=== PATIENT | female | born 1950 | race Caucasian/White ===

== ENCOUNTER 2021-08-17 11:02 | Emergency (ER) | payer MEDICARE, SELFPAY ==
[2021-08-17] VITALS (14 sets, daily range): BP systolic 103–1326; BP diastolic 55–77; PULSE 72–85; RESP 12–22; O2SAT 96–100
--- NOTE | ~2021-08-17 | XR_ITS ---
EXAMINATION: XR chest 2V DATE: 08/17/2021 12:54 INDICATION: Intermittent shortness of breath. Atrial fibrillation. TECHNIQUE: PA and lateral views of the chest were obtained. COMPARISON: None FINDINGS: Mild linear discoid atelectasis at the lingula. No other airspace opacities, pulmonary edema, pleural effusion or pneumothorax. The cardiomediastinal silhouette is normal. Mild thoracic spondylosis. IMPRESSION: 1. Mild discoid atelectasis at the lingula. Reviewed, dictated and finalized at location A.
--- NOTE | 2021-08-17 11:06 | ECG_ITS ---
Measurements Intervals [place] Rate: 86 P: MD: 0 QRS: -11 QRSD: 83 T: 39 QT: 356 QTc: 427 Interpretive Statements ATRIAL FIBRILLATION LOW QRS VOLTAGE IN PRECORDIAL LEADS [QRS DEFLECTION < 1.0 mV IN CHEST LEADS] NONSPECIFIC T-WAVE ABNORMAL ECG NO PREVIOUS ECG AVAILABLE FOR COMPARISON Electronically Signed On 08-17-2021 13:23:31 CDT by Negro Velez M.D.
--- NOTE | 2021-08-17 11:22 | ED.ARRPALP ---
HPI - Arrhythmia/Palpitations General Chief Complaint: Arrhythmia/Palpitations Stated Complaint: arrhythmia Time Seen by Provider: 08/17/21 11:09 Source: patient Mode of arrival: ambulatory Limitations: no limitations History of Present Illness HPI narrative: 70-year-old female with history of proximal atrial fibrillation presents today with complaints of palpitations since 6 PM last night with intermittent shortness of breath. Patient currently on aspirin, nebivolol, but has not seen a inside sales for years. Patient states her inside sales has moved and her primary has been managing her medications. Patient denies chest pain or recent illness. Related Data Home Medications Medication Instructions Recorded Confirmed aspirin 81 mg PO DAILY 08/17/21 Allergies Allergy/AdvReac Type Severity Reaction Status Date / Time No Known Allergies Allergy Mild Verified 08/17/21 11:20 Review of Systems Review of Systems: CONSTITUTIONAL: Denies fever, chills, or sweats. EYES: Denies visual changes, redness, or discharge. ENT: Denies rhinorrhea, congestion, sore throat, or otalgia. CARDIOVASCULAR: Palpitations. Denies chest pain or edema. RESPIRATORY: Denies cough or dyspnea. GASTROINTESTINAL: Denies abdominal pain, nausea, vomiting, or diarrhea. GENITOURINARY: Denies dysuria or hematuria. SKIN: Denies rash or itching. MUSCULOSKELETAL: Denies back pain, joint pain, or myalgia. NEUROLOGIC: Denies headache, numbness, dizziness, or weakness. PSYCHIATRIC: Denies anxiety or depression. [facility] Past Medical History Medical History (Updated 08/17/21 @ 14:23 by Alisa Fernandez APRN) Hypertension PAF (paroxysmal atrial fibrillation) Exam Narrative: GENERAL: Well-appearing, well-nourished, and in no acute distress. HEAD: Normocephalic, atraumatic. EYES: PERRLA and EOMI. ENT: Nares clear, no rhinorrhea or epistaxis. Mucous membranes moist. Oropharynx without tonsillar hypertrophy exudate or other lesions. Bilateral TMs pearly ngo nonbulging NECK: Supple. No adenopathy or masses. No carotid bruits or JVD CHEST: Clear to auscultation. No respiratory distress. No wheezes rales or rhonchi HEART: Irregular heart rate. A. fib on EKG. No murmur heard. Normal peripheral pulses. ABDOMEN: Soft, nontender, nondistended, normal active bowel sounds. EXTREMITIES: Normal range of motion. No edema. SKIN: Warm, dry, no rash. NEURO: No focal deficits. Alert and oriented x3. PSYCH: Normal mood and affect. Course Course Emergency Course: Dr. Velez consulted on patient. Patient currently stable. Patient with history of paroxysmal atrial fibrillation currently on medications but no anticoagulants. Will discharge patient on anticoagulant with plan follow-up with cardiology. Reevaluation(s) Reevaluation #1: Patient states last labs were about 2 weeks ago. GFR at that time she believes was 58. Patient was seen by her escrow secretary who ordered the labs. Patient currently without complaints. Aware of labs. Will await chest x-ray and consult cardiology. Date: 08/17/21 Time: 12:54 Vital Signs Vital signs: Vital Signs Pulse Rate 85 08/17/21 11:10 Respiratory Rate 13 08/17/21 11:10 Blood Pressure 1326/72 H 08/17/21 11:10 Pulse Oximetry 99 08/17/21 11:10 Pulse Rate 76 08/17/21 14:20 Respiratory Rate 18 08/17/21 14:20 Blood Pressure 124/77 08/17/21 14:20 Pulse Oximetry 100 08/17/21 14:02 MDM - Arrhythmia/Palpitations Differential Diagnosis Differential diagnosis: Likely palpitations, artial fibrillation, artial flutter and ventricular premature beats Lab Data Result diagrams: 08/17/21 11:26 08/17/21 11:26 Labs: Lab Results 08/17/21 08/17/21 08/17/21 Range/Units 11:26 11:26 11:26 WBC 6.4 (4.5-10.0) K/mm3 RBC 3.90 L (4.2-5.4) M/mm3 Hgb 12.3 (12.0-15.0) g/dL Hct 37.2 (37.0-47.0) % MCV 95.4 (80-100) fl MCH 31.5 (26-34) pg MCHC 33.1 (32-3
[2021-08-17 11:34] LABS: Basophils Percent Auto 0.6 % (0.2-1.2); Eosinophils Absolute Auto 0.1 K/mm3 (0-0.3); Eosinophils Percent Auto 0.9 % (0-4.4); Hematocrit 37.2 % (37.0-47.0); Hemoglobin 12.3 g/dL (12.0-15.0); Immature Granulocyte Percent A 1.6 % (0-0.5); Lymphocytes Absolute Auto 2.74 K/mm3 (0.9-3.2); Lymphocytes Percent Auto 42.7 % (18.3-44.2); Mean Corpuscular HGB Conc 33.1 g/dl (32-36); Mean Corpuscular Hemoglobin 31.5 pg (26-34); Mean Corpuscular Volume 95.4 fl (80-100); Mean Platelet Volume 8.9 fl (7.4-10.4); Monocytes Absolute Auto 0.5 K/mm3 (0.1-0.6); Monocytes Percent Auto 7.6 % (2.6-8.5); Neutrophils Percent Auto 46.6 % (45.5-73.1); Platelet Count Result 174 k/mm3 (150-375); Red Cell Distribution Width 13.8 % (11.5-14.5); White Blood Count 6.4 K/mm3 (4.5-10.0)
[2021-08-17 11:44] LABS: Alanine Aminotransferase 20 U/L (4-35); Albumin Level 3.8 g/dL (3.5-5.1); Alkaline Phosphatase 39 U/L (38-126); Anion Gap 7 mmol/L (8-16); Aspartate Amino Transferase 23 U/L (14-36); Bilirubin,Total 0.4 mg/dL (0.2-1.3); Blood Urea Nitrogen 23 mg/dL (7-17); Calcium 8.4 mg/dL (8.4-10.2); Carbon Dioxide 26 mmol/L (22-30); Chloride 107 mmol/L (98-107); Estimated Glomerular Filt Rate 55; Glucose 84 mg/dL (65-110); Magnesium 1.9 mg/dL (1.6-2.3); Potassium 3.6 mmol/L (3.4-5.0); Sodium 140 mmol/L (137-145)
[2021-08-17] MEDS: SODIUM CHLORIDE 0.9% IV 1,000 ML 999 ML IV CONT (12:42)
[2021-08-17 13:22] LABS: Prothrombin Time 12.9 Seconds (11.1-14.7)
[2021-08-17 13:23] LABS: Partial Thromboplastin Time 24.7 SECONDS (22.3-36.8)
[2021-08-17] MEDS: RIVAROXABAN 15 MG TABLET PO (14:19)
== END 2021-08-17 14:34 | disposition home or self-care (01) ==
PROVIDERS: Emergency Medicine; Emergency Provider Nurse Practitioner Family
DX: I48.0 Paroxysmal atrial fibrillation (principal); I10 Essential (primary) hypertension; Z79.82 Long term (current) use of aspirin; R94.31 Abnormal electrocardiogram [ECG] [EKG]
CPT/HCPCS: 36415; 71046; 80053; 83735; 84443; 85025; 85610; 85730; 93005; 96360; 99283; A9270; J7030

== ENCOUNTER 2023-07-02 00:10 | Day surgery (SDC) | payer MEDICARE, SELFPAY ==
[2023-06-08 11:29] VITALS: BMI 30.1
--- NOTE | 2023-06-30 10:19 | SUR.PREOP ---
Patient called regarding upcoming procedure. Reviewed preop instructions, appointment times, and procedure prep.
[2023-07-02 07:54] VITALS: BP 151/63; PULSE 54; RESP 18; TEMP 36.4; O2SAT 99
[2023-07-02] MEDS: LACTATED RINGERS 1,000 ML 150 ML IV CONT (08:05)
--- NOTE | 2023-07-02 08:38 | WPDANESEPPF ---
Anes - Initial Pre Proc Eval Procedure: Operation Date: 07/02/23 09:00 Proposed Procedures p Colonoscopy - Finesse Radford MD Date/Time: 07/02/23 08:38 Surgeon: Finesse Radford MD Pre Op Diagnosis: hx colon polyps Patient Data Age: 72 Gender: F Height: 1.6 m Weight: 76 kg Last Vital Signs Temp 97.6 F 07/02/23 07:54 Pulse 54 L 07/02/23 07:54 Resp 18 07/02/23 07:54 BP 151/63 H 07/02/23 07:54 Pulse Ox 99 07/02/23 07:54 O2 Del Method Room Air 07/02/23 07:54 Allergies Allergy/AdvReac Type Severity Reaction Status Date / Time No Known Allergies Allergy Mild Verified 07/02/23 07:53 Home Medications Medication Instructions Recorded Confirmed Type aspirin 81 mg capsule 81 mg PO DAILY 08/17/21 06/08/23 History doxazosin 8 mg tablet (Cardura) 8 mg PO DAILY 02/19/23 06/08/23 History rosuvastatin 5 mg tablet 5 mg PO DAILY 02/19/23 06/08/23 History sulfasalazine 500 mg tablet 0.5 g PO DAILY 02/19/23 06/08/23 History escitalopram oxalate 10 mg tablet 10 mg PO DAILY #30 tabs 06/14/23 Rx (Lexapro) losartan 100 mg tablet 100 mg PO DAILY #30 tabs 06/14/23 Rx nebivolol 20 mg tablet (Bystolic) 20 mg PO DAILY #30 tabs 06/14/23 Rx Patient hx anesthesia problems: none Family hx anesthesia problems: none Results Review: All pre-operative results and documents have been reviewed as part of the pre-operative evaluation. [facility] Past Medical History Medical History (Updated 04/15/23 @ 08:16 by LANNY Andrade) Hypertension Kidney disease PAF (paroxysmal atrial fibrillation) Family History Family History Mother Cancer Cerebrovascular accident Sibling Cancer Grandparent Cancer Heart problem Social History Social History Smoking status: Never smoker Alcohol intake: current Substance use: never Lack of Transportation: No Lack of Food: Never True Current Housing: I Have Housing Concerned About Future Housing: No Difficulty Paying Gas/Electric Bills: No Difficulty Paying for Meds: No Currently Unemployed: No Education: High School Diploma/GED Difficulty w/ Childcare or Family Care: No Occupation/Education: retired Gender identity (if verbalized by the patient): Female [employer] - [employer] Final PreProcedure Day of Procedure 07/02/23 08:38 Patient weight: normal Heart: bradycardia Lungs: clear to auscultation Airway: Mallampati scale class II Neurological: alert and oriented Last oral intake: >/= 8 hours ASA classification: III Emergent: no Anesthetic plan: proceed Anesthesia type and monitoring: general GIVS and standard monitoring Results Review: All pre-operative results and documents have been reviewed as part of the pre-operative evaluation. Informed Consent: The patient's anesthetic plan and its attendant risks and benefits were discussed with the patient/family/POA. Questions were solicited and answers provided to the satisfaction of the patient/family/POA.
--- NOTE | 2023-07-02 08:42 | PM.HPGS ---
History of Present Illness History of Present Illness Consent: Risks, benefits, and alternatives have been discussed and questions answered. Patient agrees to proceed with procedure. Chief complaint: colon screening Narrative: Johanna Dunbar is a 72 year old female here for screening colonoscopy, last one about 11 years ago Review of Systems Constitutional: Constitutional: Denies headache(s) and Denies weakness Eyes: Eyes: Denies blurry vision ENT: Reports Normal hearing present, Denies headache(s) and Denies neck pain Cardiovascular: Cardiovascular: Denies chest pain and Denies dyspnea Respiratory: Respiratory: Denies dyspnea Gastrointestinal: Gastrointestinal: Reports no additional gastrointestinal complaints Genitourinary: Genitourinary: Denies dysuria Musculoskeletal: Musculoskeletal: Denies neck pain Integumentary/Breasts: Skin/Breast: Denies dry skin Neurologic: Reports Normal hearing present, Denies headache(s) and Denies weakness Psychiatric: Psychiatric: Denies anxiety Endocrine: Endocrine: Denies change in body appearance Hematologic/Lymphatic: Hematologic/Lymphatic: Denies easy bleeding Allergic/Immunologic: Allergic/Immunologic: Denies urticaria PMFSH Past Medical History Medical History (Updated 07/02/23 @ 08:43 by Finesse Radford MD) Colon cancer screening Hypertension Kidney disease PAF (paroxysmal atrial fibrillation) Family History Family History Mother Cancer Cerebrovascular accident Sibling Cancer Grandparent Cancer Heart problem Social History Social History Smoking status: Never smoker Alcohol intake: current Substance use: never Lack of Transportation: No Lack of Food: Never True Current Housing: I Have Housing Concerned About Future Housing: No Difficulty Paying Gas/Electric Bills: No Difficulty Paying for Meds: No Currently Unemployed: No Education: High School Diploma/GED Difficulty w/ Childcare or Family Care: No Occupation/Education: retired Gender identity (if verbalized by the patient): Female Meds Home Medications and Allergies Home Medications Medication Instructions Recorded Confirmed Type aspirin 81 mg capsule 81 mg PO DAILY 08/17/21 06/08/23 History doxazosin 8 mg tablet (Cardura) 8 mg PO DAILY 02/19/23 06/08/23 History rosuvastatin 5 mg tablet 5 mg PO DAILY 02/19/23 06/08/23 History sulfasalazine 500 mg tablet 0.5 g PO DAILY 02/19/23 06/08/23 History escitalopram oxalate 10 mg tablet 10 mg PO DAILY #30 tabs 06/14/23 Rx (Lexapro) losartan 100 mg tablet 100 mg PO DAILY #30 tabs 06/14/23 Rx nebivolol 20 mg tablet (Bystolic) 20 mg PO DAILY #30 tabs 06/14/23 Rx Allergies Allergy/AdvReac Type Severity Reaction Status Date / Time No Known Allergies Allergy Mild Verified 07/02/23 07:53 Vital Signs Vital Signs - 24 hr 07/02/23 07:54 Temperature 97.6 F Pulse Rate 54 L Respiratory Rate 18 Blood Pressure 151/63 H Pulse Oximetry 99 Oxygen Delivery Room Air Exam Const: General: comfortable and no acute distress HENMT: Face/Nose/Sinus: Normal nares present Eyes: General: appearance normal, both eyes and all related structures Neck: Neck: no JVD Resp: Auscultation: clear to auscultation bilaterally Cardio: Rate: regular rate Rhythm: regular rhythm GI: Inspection: non-distended GI Palp: Yes Soft to palpation Skin: General skin exam: normal color Neuro: General: gait normal Speech: normal speech Extrem: General: normal to inspection Psych: Mental Status: mental status grossly normal Assessment and Plan Assessment and plan (1) Colon cancer screening: Code(s): Z12.11 - Encounter for screening for malignant neoplasm of colon Status: Acute Assessment and Plan: colonoscopy
[2023-07-02 09:09] VITALS: BP 149/79; PULSE 56; RESP 24; O2SAT 100
[2023-07-02 09:19] VITALS: BP 139/66; PULSE 59; RESP 25; O2SAT 100
[2023-07-02 09:29] VITALS: BP 159/55; PULSE 56; RESP 23; O2SAT 100
== END 2023-07-02 09:35 | disposition home or self-care (01) ==
PROVIDERS: PCP Clinical Nurse Specialist; Referring Provider Clinical Nurse Specialist; Visit Provider Internal Medicine Gastroenterology
PROC: 0DJD8ZZ Inspection of Lower Intestinal Tract, Via Natural or Artificial Opening Endoscopic (ICD-10-PCS; CPT 45378; principal; 2023-07-02 09:00)
DX: Z12.11 Encounter for screening for malignant neoplasm of colon (principal); D12.2 Benign neoplasm of ascending colon; K63.5 Polyp of colon; K64.8 Other hemorrhoids; I48.0 Paroxysmal atrial fibrillation; I10 Essential (primary) hypertension; N28.9 Disorder of kidney and ureter, unspecified; Z79.82 Long term (current) use of aspirin
CPT/HCPCS: 45385; 88305; J2001; J2704; J7120

== ENCOUNTER → 2023-07-27 10:56 | Outpatient (CLI) | payer MEDICARE, SELFPAY ==
--- NOTE | ~2023-07-27 | XR_ITS ---
EXAMINATION: XR hip LT 2V w AP pelvis DATE: 07/27/2023 11:13 INDICATION: Left hip pain. TECHNIQUE: An anteroposterior view of the pelvis and 2 views of left hip were obtained. COMPARISON: None. FINDINGS: Bone alignment is normal. No fracture. There is mild osteoarthritis of the hips characteriz ed by tiny osteophytes. Osteitis pubis is noted. IMPRESSION: 1. Mild osteoarthritis of the hips. Reviewed, dictated and finalized at location E. EM TRAINER
== END ==
PROVIDERS: PCP Internal Medicine; Visit Provider Internal Medicine
DX: M16.12 Unilateral primary osteoarthritis, left hip (principal)
CPT/HCPCS: 73502

== ENCOUNTER 2023-08-11 13:04 | Outpatient (CLI) | payer MEDICARE, SELFPAY ==
--- NOTE | 2023-08-11 13:15 | ECHO_ITS ---
Patient Info Name: Johanna Dunbar Age: 72 years : 1950 Gender: Female Ht: 63 in Wt: 169 lbs BSA: 1.87 m2 HR: 50 bpm BP: 167 / 78 mmHg Heart Rhythm: Sinus Rhythm Technical Quality: Good Exam Date: 08/11/2023 1:27 PM Exam Location: Echo Lab Patient Status: Outpatient Admit Date: 08/11/2023 Staff Ordering Physician: Milton Sepulveda DO Gore Cutter: Elva Sarmiento RDCS Attending Provider: Milton Sepulveda DO Referring Physician: Coco TOSCANO; Exam Type: CA echo doppler color flow Study Info Indications - paroxysmal atrial fibrilation Complete two-dimensional, color flow and Doppler transthoracic echocardiogram is performed. Summary 1. Complete two-dimensional, color flow and Doppler transthoracic echocardiogram is performed. 2. Left ventricular chamber dimension is mildly enlarged. 3. Left ventricular systolic function is normal, estimated at 65-70%. 4. There is mild concentric increased left ventricular wall thickness. 5. The left ventricular diastolic function is abnormal. 6. E/e' 16 is elevated. 7. Left atrial chamber dimension is mildly enlarged. 8. There is mild aortic valve sclerosis. 9. There is mild to moderate aortic valve regurgitation. 10. There is mild mitral valve regurgitation. 11. No pulmonary hypertension, estimated pulmonary arterial systolic pressure is 19 mmHg. 12. There is trivial pericardial effusion. Left Ventricle E/e' 16 is elevated. Left ventricular chamber dimension is mildly enlarged. Left ventricular systolic function is normal, estimated at 65-70%. There is mild concentric increased left ventricular wall thickness. The left ventricular diastolic function is abnormal. Right Ventricle Right ventricular systolic function is normal and with normal TAPSE 2.4 cm. Right ventricular chamber dimension is normal. Left Atria Left atrial chamber dimension is mildly enlarged. Right Atria Right atrial chamber dimension is normal. Aortic Valve The aortic valve is not well visualized. Cannot determine number of aortic valve leaflets. There is mild aortic valve sclerosis. There is no aortic valve stenosis. There is mild to moderate aortic valve regurgitation. Pulmonic Valve There is no pulmonic regurgitation. Mitral Valve There is no mitral valve stenosis. There is mild mitral valve regurgitation. Tricuspid Valve There is no tricuspid valve regurgitation. No pulmonary hypertension, estimated pulmonary arterial systolic pressure is 19 mmHg. Pericardium/Pleural There is trivial pericardial effusion. Inferior Vena Cava Normal inferior vena cava with >50% collapse upon inspiration consistent with normal right atrial pressure, 5 mmHg. Aorta The aortic root size at the sinus of Valsalva is normal. Left Ventricular Outflow Tract Name Value Normal LVOT 2D LVOT Diameter 2.1 cm LVOT Doppler LVOT Peak Gradient 3 mmHg LVOT Mean Gradient 2 mmHg LVOT VTI 30 cm LVOT VTI/AV VTI Ratio 0.5 LVOT Stroke Volume 106 ml LVOT CO 5.6 l/min LVOT CI
== END 2023-08-11 13:05 | disposition home or self-care (01) ==
LOC: ANHCARD 13:06
PROVIDERS: PCP Internal Medicine; Visit Provider Internal Medicine
DX: I48.0 Paroxysmal atrial fibrillation (principal); I35.8 Other nonrheumatic aortic valve disorders; R93.1 Abnormal findings on diagnostic imaging of heart and coronary circulation; I35.1 Nonrheumatic aortic (valve) insufficiency; I34.0 Nonrheumatic mitral (valve) insufficiency; I31.39 Other pericardial effusion (noninflammatory)
CPT/HCPCS: 93306

== ENCOUNTER 2023-11-20 08:37 | Outpatient (CLI) | payer MEDICARE, SELFPAY ==
--- NOTE | ~2023-11-20 | XR_ITS ---
EXAMINATION: XR knee RT 3V DATE: 11/20/2023 08:51 INDICATION: Right knee pain TECHNIQUE: Standing AP, lateral and sunrise views of the right knee were obtained COMPARISON: None. FINDINGS: Alignment is normal. No fracture. Mild joint space narrowing and small marginal osteophytes at the me dial and patellofemoral compartments of the right knee. No joint effusion/layering lipohemarthrosis. Soft tissues are unremarkable. IMPRESSION: 1. Mild osteoarthritis at the medial and patellofemoral compartments of the right knee. Reviewed, dictated and finalized at location B. IMPRESSION: 1. Mild osteoarthritis at the medial and patellofemoral compartments of the rig ht knee.
== END 2023-11-20 08:38 ==
LOC: GOSHIMG 08:39
PROVIDERS: PCP Internal Medicine; Visit Provider Clinical Nurse Specialist
DX: M17.11 Unilateral primary osteoarthritis, right knee (principal); M25.561 Pain in right knee
CPT/HCPCS: 73562

== ENCOUNTER 2023-11-25 13:23 | Outpatient (CLI) | payer MEDICARE, SELFPAY ==
--- NOTE | ~2023-11-25 | MR_ITS ---
EXAMINATION: MR knee RT wo con DATE: 11/25/2023 14:02 INDICATION: Right knee pain. TECHNIQUE: Magnetic resonance imaging (MRI) of the right knee was performed without intravenous contr ast. Sequences included axial PD-weighted FS FSE, coronal PD-weighted FSE and PD-weighted FS FSE, sag ittal PD-weighted FSE, and sagittal T2-weighted FS FSE. COMPARISON: Right knee radiograph 11/20/2023 FINDINGS: Medial compartment: There is a complex tear involving posterior horn of medial meniscus. Tibial condyle demonstrates shal low partial-thickness cartilage loss. There is partial-thickness cartilage loss of femoral condyle, d eep at the central articular surface. Osteophytes are noted. Lateral compartment: Lateral meniscus is normal. There is cartilage surface irregularity of tibial condyle and femoral con dyle. Osteophytes are noted. Patellofemoral compartment: There is full-thickness cartilage loss of patellar median ridge and adjacent aspect of medial and lat eral facets with mild subchondral edema-like marrow signal intensity. There is shallow partial-thickn ess cartilage loss of the trochlea. Osteophytes are noted. Ligaments and tendons: The anterior and posterior cruciate ligaments are normal. There are changes of prior sprains of media l collateral ligament and fibular collateral ligament characterized by increased signal intensity. Th ere is mild patellar tendinopathy. Fluid: There is a moderate-sized knee joint effusion. There is a moderate-sized Bland's cyst. There is mild prepatellar and superficial infrapatellar bursitis. IMPRESSION: 1. Severe chondrosis of patellofemoral compartment, moderate chondrosis of medial compartment, and mi ld chondrosis of lateral compartment. 2. Tear of medial meniscus. 3. Moderate-sized knee joint effusion. 4. Moderate-sized Bland's cyst. Reviewed, dictated and finalized at location A. IMPRESSION: 1. Severe chondrosis of patellofemoral compartment, moderate chondrosis of medi al compartment, and mild chondrosis of lateral compartment. 2. Tear of medial meniscus. 3. Moderate-sized knee joint effusion. 4. Moderate-sized Bland's cyst.
== END 2023-11-25 13:24 ==
LOC: GOSHIMG 13:25
PROVIDERS: PCP Internal Medicine; Visit Provider Clinical Nurse Specialist
DX: M25.561 Pain in right knee (principal); M22.2X1 Patellofemoral disorders, right knee; S83.241A Other tear of medial meniscus, current injury, right knee, initial encounter; M25.461 Effusion, right knee; M71.21 Synovial cyst of popliteal space [Baker], right knee
CPT/HCPCS: 73721

== ENCOUNTER 2024-06-01 10:55 | Emergency (ER) | payer MEDICARE, SELFPAY ==
--- NOTE | 2024-06-01 11:10 | ED.SKABFB ---
HPI - Skin/Abscess/Foreign Bdy General Chief complaint: Animal Bite Stated complaint: CAT BITE R INDEX FINGER Time Seen by Provider: 06/01/24 11:11 Source: patient and RN notes reviewed Mode of arrival: ambulatory Limitations: dementia History of Present Illness HPI narrative: 73-year-old female presents with concern for cap bite to the 2nd digit of the right hand. Reports she got bit yesterday. Reports she has had redness, swelling, pain to the digit. She denies drainage. She denies fever MD complaint: other (Redness) Related Data Home Medications ?Medication ?Instructions ?Recorded ?Confirmed ?Last Taken ?Type aspirin 81 mg capsule 162 mg PO DAILY 07/27/23 03/21/24 Unknown History sulfasalazine 500 mg tablet 0.5 g PO DAILY 09/14/23 03/21/24 Unknown History Allergies Allergy/AdvReac Type Severity Reaction Status Date / Time No Known Allergies Allergy Mild Verified 06/01/24 11:15 Review of Systems Review of Systems: CONSTITUTIONAL: Denies malaise, chills, sweats, or fever. CARDIOVASCULAR: Denies chest pain, palpitations, or edema. RESPIRATORY: Denies cough or dyspnea. GASTROINTESTINAL: Denies abdominal pain, nausea, vomiting SKIN: Reports redness, swelling, pain to the distal 2nd digit of the right hand. Denies purulent drainage, vesicles, bullae, numbness, pain beyond proportion MUSCULOSKELETAL: Denies joint pain or myalgia. NEUROLOGIC: Denies headache. All systems reviewed & are unremarkable except as noted in HPI and below PMFSH Past Medical History Medical History Aortic valve regurgitation Cataract Colon cancer screening (~03/14/24) Hypertension Kidney disease PAF (paroxysmal atrial fibrillation) Surgical History Surgical History History of cataract surgery Family History Family History Mother Cancer Cerebrovascular accident Sibling Cancer Grandparent Cancer Heart problem Social History Social History Smoking status: Never smoker Second hand tobacco smoke exposure: Yes Alcohol intake: current Substance use: never Substance use type: does not use Do You Feel Safe in your Home?: Yes Lack of Transportation: No Lack of Food: Never True Current Housing: I Have Housing Concerned About Future Housing: Decline to Answer Difficulty Paying Gas/Electric Bills: Decline to Answer Difficulty Paying for Meds: Decline to Answer Currently Unemployed: Decline to Answer Education: Decline to Answer Difficulty w/ Childcare or Family Care: Decline to Answer Living arrangements: with family 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 There is no relevant family history pertinent to the presenting complaint Exam Narrative: GENERAL: Well-appearing, well-nourished, and in no acute distress. HEAD: Normocephalic, atraumatic. EYES: PERRLA, conjunctivae clear ENT: Mucous membranes moist. NECK: Supple. No lymphadenopathy CHEST: Clear to auscultation. No respiratory distress. HEART: Regular rate and rhythm. SKIN: Warm, dry. Puncture wound surrounded by Erythema, induration, tenderness, warmth with sharp margins noted to the 2nd digit of the distal right hand. No vesicles, bullae, necrosis, ecchymosis, crepitus noted. NEURO: Alert and oriented x3. PSYCH: Normal mood and affect Course Course Emergency Course: Patient is aware of diagnosis, understands and agrees to treatment plan. Anticipatory guidance given. Patient agrees to follow-up as directed and is aware of reasons to seek care at the emergency department. Portions of this record may have been created with voice recognition software Level of Care: Express Care Visit Vital Signs Vital signs: Reviewed. MDM - Skin/Abscess/Foreign Bdy MDM Narrative Medical decision making narrative: I evaluated this in the express care. History is obtained from patient who is an independent historian and physical exam was performed.? Available medical records were reviewed. ? Exam findings and relevant testing show no acute concerns or changes; patient is non-toxic appearing and is in no distress. No risk factors or findings concerning for epidural abscess, diskitis, vertebral osteomyelitis, cord compression, cauda equina, vertebral fracture or bone malignancy, AAA, or pyelonephritis. Patient instructed to consider further imaging and workup through their primary care physician as an outpatient if symptoms persist. Does not appear at this time to be erythema multiforme, bullous, SJS, TEN; no evidence at this time to suggest RMSF, NSTI, endocarditis or Lyme disease; patient looks well, nontoxic and is tolerating oral intake; no neurologic signs or symptoms; no headache, photophobia or neck pain; afebrile.? Patient does not have history of of penetrating trauma, laceration, blunt trauma, recent surgery, immunosuppression, malignancy, obesity, alcoholism, corticosteroid use.? Discussed the importance of follow-up, patient agrees; question, cellulitis versus necrotizing soft tissue infection versus abscess.?? Patient is appropriate for outpatient treatment and follow-up. Critical Care Time Critical Care Time Critical Care Time: No Discharge Plan Discharge Clinical Impression: Infected cat bite of finger Patient Disposition: Home, Self-Care Condition: Stable Instructions: Antibiotic Form, Animal Bite (ED) Additional Instructions: Please follow up with your Primary Care Doctor within 48-72 hours - call for an appointment. Rest and elevate affected area; apply moist heat/soaks 3-4 times daily for 10-15 minutes. Take Motrin 600mg every 8 hours with food for pain. Please take Antibiotics as directed. If you experience any worsening redness, swelling, streaking (red lines), fever or chills please go to the ER Patient Language: Brazilian Prescriptions: New amoxicillin-pot clavulanate 875-125 mg tablet 1 tablet PO Q12H 10 Days Qty: 20 0RF No Action rosuvastatin 5 mg tablet 5 mg PO .COMPLEX Qty: 30 6RF Rx Instructions: 5 mg orally every other day. sulfasalazine 500 mg tablet 0.5 g PO DAILY Rx Instructions: give with food (meal/snack) twice daily aspirin 81 mg capsule 162 mg PO DAILY escitalopram oxalate [Lexapro] 10 mg tablet 10 mg PO DAILY Qty: 30 5RF losartan 100 mg tablet 100 mg PO DAILY Qty: 30 5RF nebivolol [Bystolic] 20 mg tablet 20 mg PO DAILY Qty: 30 5RF doxazosin [Cardura] 8 mg tablet 8 mg PO DAILY Qty: 30 5RF Follow-up/Referrals: Aaliyah Draper, [employer] [Primary Care Provider] - Time of Disposition: 11:21
[2024-06-01 11:15] VITALS: BP 128/66; PULSE 63; RESP 16; TEMP 36.6; O2SAT 100
--- NOTE | 2024-06-01 11:21 | PC.NURSE ---
ANIMAL BITE FORM COMPLETED AND FAXED TO [facility] PER REGISTRATION
== END 2024-06-01 11:25 | disposition home or self-care (01) ==
PROVIDERS: Emergency Provider Nurse Practitioner; PCP Clinical Nurse Specialist
DX: S61.251A Open bite of left index finger without damage to nail, initial encounter (principal); L08.9 Local infection of the skin and subcutaneous tissue, unspecified; I10 Essential (primary) hypertension; I48.0 Paroxysmal atrial fibrillation; W55.01XA Bitten by cat, initial encounter
CPT/HCPCS: 99213; G0463

== ENCOUNTER 2024-09-27 11:34 | Emergency (ER) | payer MEDICARE, SELFPAY ==
[2024-09-27 11:43] VITALS: BP 137/66; PULSE 69; RESP 16; TEMP 36.4; O2SAT 97
--- NOTE | 2024-09-27 13:11 | ED.URI ---
HPI - URI/Sore Throat General Chief Complaint: Upper Respiratory Infection Stated Complaint: Head Congestion/Cough Time Seen by Provider: 09/27/24 13:00 Source: patient, RN notes reviewed and old records reviewed Mode of arrival: ambulatory Limitations: no limitations History of Present Illness HPI Narrative: 73 year old female who presents to express care with complaints of cough, nasal congestion with drainage some headache and ear pain since the 13 of September. Patient reports that she has been taking daytime and night time cold medication, sparingly due to hypertension. Patient reports that her cough is better but ears feel full and has decreased hearing and sinuses feel clogged.. MD elicited complaint: cough, rhinorrhea, nasal congestion and other (headache and ear pain) Pertinent past history: sinusitis Onset (ago): week(s) (since September 13) Consistency: constant Able to tolerate fluids by mouth: Yes Treatments prior to arrival: other (daytime and night time cold medication ) Related Data Home Medications ?Medication ?Instructions ?Recorded ?Confirmed ?Last Taken ?Type sulfasalazine 500 mg tablet 0.5 g PO DAILY 09/14/23 08/15/24 Unknown History aspirin 81 mg capsule 81 mg PO DAILY 08/15/24 08/15/24 Unknown History Allergies Allergy/AdvReac Type Severity Reaction Status Date / Time No Known Allergies Allergy Mild Verified 09/27/24 12:11 Review of Systems Review of Systems: CONSTITUTIONAL: Denies malaise, chills, sweats, or fever. EYES: Denies visual changes, redness, or discharge. ENT: Reports rhinorrhea, congestion, sinus pain, otalgia and no present sore throat. CARDIOVASCULAR: Denies chest pain, palpitations, or edema. RESPIRATORY: Reports cough.? Denies dyspnea. GASTROINTESTINAL: Denies abdominal pain, nausea, vomiting, diarrhea SKIN: Denies rash or itching. MUSCULOSKELETAL: Denies myalgia. NEUROLOGIC:Reports frontal headache. All systems reviewed & are unremarkable except as noted in HPI and below PMFSH Past Medical History Medical History RA (rheumatoid arthritis) Cataract Aortic valve regurgitation Colon cancer screening (~03/14/24) Kidney disease Hypertension PAF (paroxysmal atrial fibrillation) Surgical History Surgical History History of cataract surgery Family History Family History Mother Cancer Cerebrovascular accident Sibling Cancer Grandparent Cancer Heart problem Social History Social History Smoking status: Never smoker Second hand tobacco smoke exposure: Yes Alcohol intake: current Substance use: never Substance use type: does not use Do You Feel Safe in your Home?: Yes Lack of Transportation: No Lack of Food: Never True Current Housing: I Have Housing Concerned About Future Housing: Decline to Answer Difficulty Paying Gas/Electric Bills: Decline to Answer Difficulty Paying for Meds: Decline to Answer Currently Unemployed: Decline to Answer Education: Decline to Answer Difficulty w/ Childcare or Family Care: Decline to Answer Living arrangements: with family 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 There is no relevant family history pertinent to the presenting complaint Exam Narrative: GENERAL: Well-appearing, well-nourished, and in no acute distress. HEAD: Normocephalic EYES: PERRLA, conjunctivae clear ENT: Nares clear, turbinates edematous and erythematous, clear discharge, sinus pressure and frontal headache. Mucous membranes moist. TM pearly ngo with dull light reflex bilaterally; no tragal tenderness. Oropharynx erythematous without lesions. Tonsils not enlarged and without exudate, no drooling, no hoarseness, no trismus, uvula midline. NECK: Supple. No lymphadenopathy CHEST: Clear to auscultation, breath sounds equal. No wheezing, rhonchi, rales, or stridor. No respiratory distress, speaks in full sentences.cough intermittent, SAO2 97% on room air HEART: Regular rate and rhythm. No murmur heard. SKIN: Warm, dry, no rash. NEURO: Alert and oriented x3. PSYCH: Normal mood and affect Course Course Emergency Course: Patient is aware of diagnosis, understands and agrees to treatment plan.? Anticipatory guidance given.? Patient agrees to follow-up as directed and is aware of reasons to seek care at the emergency department. Portions of this record may have been created with voice recognition software Level of Care: Express Care Visit Vital Signs Vital signs: Vital Signs Temperature 36.4 C 09/27/24 11:43 Pulse Rate 69 09/27/24 11:43 Respiratory Rate 16 09/27/24 11:43 Blood Pressure 137/66 09/27/24 11:43 Pulse Oximetry 97 09/27/24 11:43 Temperature 36.4 C 09/27/24 11:43 Pulse Rate 69 09/27/24 11:43 Respiratory Rate 16 09/27/24 11:43 Blood Pressure 137/66 09/27/24 11:43 Pulse Oximetry 97 09/27/24 11:43 Reviewed MDM - URI/Sore Throat MDM Narrative Medical decision making narrative: Differential diagnosis considered: Reyes virus, strep pharyngitis, allergic rhinitis, upper respiratory tract infection, sinusitis, rhinosinusitis, nasopharyngitis. viral pharyngitis, otitis media, otitis externa, pneumonia, bronchitis, viral cough syndrome, viral syndrome, and influenza.? Exam findings show no acute concerns or changes; patient is non-toxic appearing and is in no distress.? Patient is appropriate for outpatient treatment and follow-up. Differential Diagnosis Differential diagnosis: Likely upper respiratory infection, otitis media, sinusitis and viral infection Medical Records Attestation: I reviewed the patient's medical records. Lab Data Attestation: I reviewed the patient's lab results. Critical Care Time Critical Care Time Critical Care Time: No Discharge Plan Discharge Clinical Impression: Sinusitis Qualifiers: Sinusitis location: pansinusitis Chronicity: acute Recurrence: not specified as recurrent Qualified Code(s): J01.40 - Acute pansinusitis, unspecified Patient Disposition: Home Condition: Stable Instructions: Antibiotic Form, Sinusitis (ED) Additional Instructions: Increase fluids especially juices and water [id number]-[id number] cough and cold medicine of your choice for your symptoms Tylenol or ibuprofen for any fever pain Zyrtec Claritin or Ros daily heat to the face 20-30 minutes 4-6 times a day for pain Salt water gargles, throat lozenges or throat sprays as desired Antibiotic as directed--finished the medication If your symptoms persist, change or worsen significantly before you can contact your personal physician then please, without delay, go to the emergency department for further evaluation. Follow-up with PCP in 7-10 days or sooner if needed Follow up with PCP soon in regards to your blood pressure which is elevated above threshold for referral. Blood pressure above 120/80 may indicate pre-hypertension. 137/66 Patient Language: Arabic Prescriptions: New amoxicillin-pot clavulanate 875-125 mg tablet 1 tablet PO Q12H Qty: 20 0RF No Action rosuvastatin 5 mg tablet 5 mg PO .COMPLEX Qty: 30 6RF Rx Instructions: 5 mg orally every other day. sulfasalazine 500 mg tablet 0.5 g PO DAILY Rx Instructions: give with food (meal/snack) twice daily aspirin 81 mg capsule 81 mg PO DAILY doxazosin [Cardura] 8 mg tablet 8 mg PO DAILY Qty: 30 5RF escitalopram oxalate [Lexapro] 10 mg tablet 10 mg PO DAILY Qty: 30 5RF losartan 100 mg tablet 100 mg PO DAILY Qty: 30 5RF nebivolol [Bystolic] 20 mg tablet 20 mg PO DAILY Qty: 30 5RF Follow-up/Referrals: PHYSICIAN,AGILE SCRUM COACH [Primary Care Provider] - Time of Disposition: 13:15 Quality [place] Coma Scale Eyes: Open Verbal: Oriented and Alert Motor: Follows Commands [place] Coma Total Score: 15
== END 2024-09-27 13:17 | disposition home or self-care (01) ==
PROVIDERS: Emergency Provider Registered Nurse
DX: J01.40 Acute pansinusitis, unspecified (principal); I10 Essential (primary) hypertension; I48.0 Paroxysmal atrial fibrillation; I35.1 Nonrheumatic aortic (valve) insufficiency; M06.9 Rheumatoid arthritis, unspecified; Z79.82 Long term (current) use of aspirin
CPT/HCPCS: 99213; G0463

== ENCOUNTER 2025-03-29 14:50 | Outpatient (CLI) | payer MEDICARE, SELFPAY ==
--- NOTE | 2025-03-29 14:59 | ECHO_ITS ---
Patient Info Name: Johanna Dunbar Age: 74 years : 1950 Gender: Female Ht: 63 in Wt: 163 lbs BSA: 1.84 m2 HR: 59 bpm BP: 151 / 87 mmHg Heart Rhythm: Sinus Rhythm Technical Quality: Fair Exam Date: 03/29/2025 3:01 PM Patient Status: O Admit Date: 03/29/2025 Exam Type: CA echo doppler color flow Complete two-dimensional, color flow and Doppler transthoracic echocardiogram is performed. Sql Server Dba: Latesha Lara Attending Provider: Milton Sepulveda DO Summary 1. Complete two-dimensional, color flow and Doppler transthoracic echocardiogram is performed. 2. Left ventricular chamber dimension is normal. 3. Left ventricular systolic function is normal, estimated at 65-70. 4. The left ventricular diastolic function is grade I diastolic dysfunction. 5. E/e' 15 is elevated. 6. Left atrial chamber dimension is mildly enlarged. 7. The aortic valve is bicuspid. 8. There is moderate aortic valve sclerosis. 9. There is mild aortic valve stenosis with a peak velocity of 285 cm/s, mean gradient of 15 mmHg, and aortic valve area of 1.5 cm2. 10. There is mild aortic valve regurgitation. 11. No pulmonary hypertension, estimated pulmonary arterial systolic pressure is 32 mmHg. Left Ventricle E/e' 15 is elevated. Left ventricular chamber dimension is normal. Left ventricular systolic function is normal, estimated at 65-70. The left ventricular diastolic function is grade I diastolic dysfunction. Right Ventricle Right ventricular chamber dimension is normal. Right ventricular systolic function is normal. Left Atria Left atrial chamber dimension is mildly enlarged. Right Atria Right atrial chamber dimension is normal. Aortic Valve The aortic valve is bicuspid. There is moderate aortic valve sclerosis. There is mild aortic valve stenosis with a peak velocity of 285 cm/s, mean gradient of 15 mmHg, and aortic valve area of 1.5 cm2. There is mild aortic valve regurgitation. Pulmonic Valve There is no pulmonic regurgitation. Mitral Valve There is no mitral valve stenosis. There is no mitral valve regurgitation. Tricuspid Valve There is no tricuspid valve regurgitation. No pulmonary hypertension, estimated pulmonary arterial systolic pressure is 32 mmHg. Pericardium/Pleural There is no pericardial effusion. Inferior Vena Cava Normal inferior vena cava with >50% collapse upon inspiration consistent with normal right atrial pressure, 5 mmHg. Aorta The aortic root size at the sinus of Valsalva is normal. Left Ventricular Outflow Tract Name Value Normal LVOT 2D LVOT Diameter 2.0 cm LVOT Doppler LVOT Peak Velocity 136 cm/s LVOT Peak Gradient 7 mmHg LVOT Mean Gradient 3 mmHg LVOT VTI 30 cm LVOT VTI/AV VTI Ratio 0.5 LVOT Stroke Volume 95 ml LVOT CO 5.1 l/min LVOT CI 2.8 l/min/m2 Pulmonic Valve Name Value Normal RVOT Doppler RVOT Peak Velocity 88 cm/s RVOT Peak Gradient 3 mmHg PV Doppler PV Peak Velocity 98 cm/s PV Peak Gradient 4 mmHg Mitral Valve Name Value Normal MV Diastolic Function MV E Peak Velocity 57 cm/s MV A Peak Velocity 74 cm/s MV E/A 0.8 MV Decel Time (PW) 245 ms MV Annular TDI MV E/e' (Septal) 14.8 MV E/e' (Lateral) 16.1 MV E/e' (Average) 15.4 Tricuspid Valve Name Value Normal TV Regurgitation Doppler TR Peak Velocity 260 cm/s TR Peak Gradient 20 mmHg Estimated PAP/RSVP RA Pressure 5 mmHg <=5 PA Systolic Pressure 32 mmHg <36 RV Systolic Pressure 32 mmHg <36 TV Annular TDI TV Lateral Janki s' Velocity 13.3 cm/s >=9.5 Aorta Name Value Normal Ascending Aorta Ao Root Diameter (MM) 3.3 cm Ao Root Diam Index (MM) 1.8 cm/m2 Aortic Valve Name Value Normal AV Doppler AV Peak Velocity 285 cm/s AV Peak Gradient 32 mmHg AV Mean Gradient 15 mmHg AV VTI 62 cm AV Area (Cont Eq VTI) 1.5 cm2 >=3.0 AV Area (Cont Eq Randy) 1.5 cm2 AV DI (Randy) 0.48 AV Regurgitation 2D LVOT Area 3.2 cm2 Ventricles Name Value Normal LV Dimensions 2D/MM IVS Diastolic Thickness (2D) 1.0 cm 0.6-1.0 LVID Diastole (2D) 5.6 cm 3.8-5.2 LVIW Diastolic Thickness (2D) 1.0 cm 0.6-0.9 LVID Systole (2D) 3.1 cm 2.2-3.5 LVOT Diameter 2.0 cm LV Mass (2D Cubed) 225.27 g 67.00-162.00 LV Mass Index (2D Cubed) 123 g/m2 43-95 Relative Wall Thickness (2D) 0.35 <=0.42 LV Fractional Shortening/Ejection Fraction 2D/MM LV Fractional Shortening (2D) 44 % 27-45 LV EF (2D Teichholz) 75 % LV Diastolic Volume (4C MOD) 84 ml LV EF (4C MOD) 61 % LV Diastolic Volume (2C MOD) 80 ml LV EF (2C MOD) 71 % LV Diastolic Volume (BP MOD) 83 ml 46-106 LV Diastolic Volume Index (BP MOD) 45 ml/m2 29-61 LV Systolic Volume (BP MOD) 29 ml 14-42 LV Systolic Volume Index (BP MOD) 16 ml/m2 8-24 LV EF (BP MOD) 65 % 54-74 LV Diastolic Length (4C) 7.6 cm LV Systolic Length (4C) 6.6 cm LV Stroke Volume (4C MOD) 51 ml Atria Name Value Normal LA Dimensions LA Dimension (MM) 3.9 cm 2.7-3.8 LA Volume (4C A-L) 53 ml LA Volume (BP A-L) 61 ml RA Dimensions RA Area (4C) 11.4 cm2 <=18.0 Report Signatures
--- OUTSIDE RECORDS SUMMARY | 2025-03-30 14:31 | XMS_ITS | Clinical Summary ---
Author Organization [facility] Address [address] [facility] [place] [address] Phone Care Team Providers [employer] Name Role Phone Darin Estrada DO Primary Care Provider Carmen blanton Allergies No known active allergies Medications 0mega-3 fatty acids-vitamin E (FISH OIL) 1,000 mg Oral CapIndications:P VC (premature ventricular contraction),Hyp erlipidemia,HTN (hypertension) Take 1,200 mg by mouth 2 times daily. Active CALCIUM/VITAMIN D2/ZINC/CHROM (CALCIUM,VIT D,CHROMIUM,ZINC ORAL)Indications :PVC (premature ventricular contraction),Hyp erlipidemia,HTN (hypertension) Take 2 Caps by mouth 2 times daily. Active GINKGO BILOBA (GINKOBA ORAL)Indications :PVC (premature ventricular contraction),Hyp erlipidemia,HTN (hypertension) Take by mouth 3 times daily. Active MULTI-VITAMIN HI-PO ORALIndications: PVC (premature ventricular contraction),Hyp erlipidemia,HTN (hypertension) Take by mouth. Active aspirin (ASPIRIN LOW DOSE) 81 mg Tablet, Delayed Release (E.C.) Take 81 mg by mouth 2 times daily. Active coenzyme Q10 200 mg Capsule Take 200 mg by mouth daily. Active escitalopram oxalate (LEXAPRO) 10 mg tablet Take 1 Tablet (10 mg) by mouth daily. 90 Tablet 4 08/21/2016 Active losartan-hydroCH LOROthiazide (HYZAAR) 100-25 mg tablet Take 1 Tablet by mouth daily. 30 Tablet 5 03/17/2017 Active rosuvastatin (CRESTOR) 5 mg tablet Take 5 mg by mouth every other day. Active BYSTOLIC 20 mg Tablet TAKE ONE TABLET BY MOUTH ONCE DAILY 90 Tablet 05/26/2017 Active Active Problems Patient Care Coordination No te Formatting of this note migh t be different from the original. Breaker Up: Dr. Gruber ( [facility] ) Problem Noted Date Diagnosed Date PAF (paroxysmal atrial fibrillation) 04/23/2015 Benign hypertension 04/23/2015 Mixed hyperlipidemia 04/23/2015 Situational mixed anxiety and depressive disorde r 04/23/2015 Family History Relation Name Status Comments Father (Age 76) NE & strok e Mother (Age 74) lung cance r Social History Tobacco Use Types Packs/Day Years Used Date Smoking Tobacco: Never Smokeless Tobacco: Never Alcohol Use Standard Drinks/Week Comments Yes 0 (1 standard drink = 0.6 oz pur e alcohol) rare Comments Unknown Sex and Gender Information Value Date Recorded Sex Assigned at Not on file Legal Sex Female 6:03 AM MEDICAL TERMINOLOGIST Gender Identity Not on file Sexual Orientation Not on file Last Filed Vital Signs Vital Sign Reading Time Taken Comments Blood Pressure 130/88 07/18/2016 3:00 PM MEDICAL TERMINOLOGIST Pulse 80 07/18/2016 3:00 PM MEDICAL TERMINOLOGIST Temperature - - Respiratory Rate - - Oxygen Saturation 98% 07/18/2016 3:00 PM MEDICAL TERMINOLOGIST Inhaled Oxygen Concentration - - Weight 82.6 kg (182 lb) 07/18/2016 3:00 PM MEDICAL TERMINOLOGIST Height 165.1 cm (5' 5) 07/18/2016 3:00 PM MEDICAL TERMINOLOGIST Body Mass Index 30.29 07/18/2016 3:00 PM MEDICAL TERMINOLOGIST Plan of Treatment Health Maintenance Due Date Last Done Comments DTAP/TDAP/TD VACCINES (1 - Tdap) 12/13/1970 BREAST CANCER SCREENING 1991 COLORECTAL SCREENING 12/13/1996 Colorectal Cancer Screening 12/13/1996 FIT-DNA Q 3 years 12/13/1996 FIT/FOBT Q 1 year 12/13/1996 Flex Sig/CT Colonography Q 5 years 12/13/1996 ZOSTER VACCINE (1 of 2) 12/13/2001 OSTEOPOROSIS SCREENING 12/13/2016 PNEUMOCOCCAL VACCINE 50+ YEA RS (2 of 2 - PCV20 or PCV21) 09/21/2018 09/21/2017 INFLUENZA VACCINE (#1) 2024 RSV VACCINE (60+ or ) (1 - 1-dose 75+ series) 12/13/2026 Insurance Care Teams Teacher Nurs[employer] Relationship Specialty Start Date End Date Darin Estrada DO PCP - General Family Practice 02/03/11
--- OUTSIDE RECORDS SUMMARY | 2025-03-30 14:31 | XMS_ITS | Clinical Summary ---
Author Organization [facility] C Address [address] [place] [address] Care Team Providers Care Pattern Hand Name Role Phone Milton Sepulveda DO Primary Care Provider Estefanía Gomes MD Unavailable [phone] Allergies Active Allergy Reactions Criticality Noted Date Comments Venlafaxine Other (See comments) Low hypertension, Medications multivitamin capsule take 1 capsule by oral route every day 0 07/28/2011 Active losartan (COZAAR) 100 mg tablet Take 100 mg by mouth daily Active escitalopram (LEXAPRO) 10 mg tablet Take 10 mg by mouth daily Active nebivoloL (BYSTOLIC) 20 mg tablet Take 20 mg by mouth daily Active rosuvastatin (CRESTOR) 5 mg tablet Take 5 mg by mouth every other day Active sulfaSALAzine (AZULFIDINE) 500 mg tablet Take 500 mg by mouth 2 (two) times a day Active calcium carbonate (OS-STEPHANIE) 650 mg calcium (1,625 mg) tablet Take 1 tablet by mouth daily Active Active Problems Problem Noted Date Diagnosed Date Encounter for gynecological examination without abnormal finding 03/04/2020 Assessment & Plan (03/04/2020 5:19 PM CDT): Pap smear and breast exam done. Schedule mammogram and DEXA Due for colonoscopy as well. Return in one year. Seropositive rheumatoid arthritis of multiple si cl 12/03/2018 Vitamin D deficiency 12/03/2018 Benign hypertension 04/23/2015 Situational mixed anxiety and depressive disorde r 04/23/2015 Mixed hyperlipidemia 04/23/2015 Menopausal syndrome 10/08/2013 Atrial fibrillation 02/15/2013 Encounters Date Type Department Care Team Description 01/19/2025 3:20 PM CDT - 01/19/2025 11:59 PM CDT Hospital Encounter [facility] [address] [facility] [address] [place] [phone] Screening mammogram, encounter for Discharge Disposition: Discharge to home or self care from Last 3 Months Immunizations Immunization Administration Dates Next Due DTaP 12/31/2015 Influenza, Quadrivalent, Split, Intramuscular Influenza, Unspecified 03/08/2019 Pneumococcal Conjugate PCV 13 09/21/2017 Surgical History Surgery Date Site/Laterality Comments COLONOSCOPY 05/25/2009 - 05/24/2010 adenomatous colon polyps BIOPSY 05/25/1971 - 05/24/1972 Erythema nodosum VAGINAL DELIVERY 05/25/1978 - 05/24/1979 VAGINAL DELIVERY 05/25/1980 - 05/24/1981 TONSILLECTOMY/ADENOIDECTOMY 05/25/1957 - 05/24/1958 BREAST BIOPSY 05/25/2016 - 05/24/2017 Left Benign Medical History Medical History Date Comments History of abnormal cervical Papanicolaou smear Adenomatous colon polyp 2009 Erythema nodosum 1971 1978 1980 Rheumatoid arteritis (HCC) 10/2017 Hypertension Hypercholesteremia Situational mixed anxiety and depressive disorde r 04/23/2015 Family History Medical History Relation Name Comments Lung cancer Maternal Grandfather Lung cancer Mother Breast cancer Mother's Sister 2 Lung cancer Mother's Sister 2 Colon cancer Neg Hx Ovarian cancer Neg Hx Relation Name Status Comments Maternal Grandfather Mother Mother's Sister 1 Alive Mother's Sister 2 Social History Tobacco Use Types Packs/Day Years Used Date Smoking Tobacco: Never Smokeless Tobacco: Never Alcohol Use Standard Drinks/Week Comments Yes 0 (1 standard drink = 0.6 oz pur e alcohol) 1 glass of wine infrequently PHQ-2 Answer Date Recorded PHQ-2 Total Score (If total score is 3 or more points, staff should administer the PHQ-9) 0 02/27/2020 Comments No Sex and Gender Information Value Date Recorded Sex Assigned at Not on file Legal Sex Female 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 Gender Identity Not on file Sexual Orientation Not on file 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 Not on file Not on file Not on file Obstetrics History Para Term AB IAB SAB Ectopic Multiple Livin g Live Births 2 2 1 1 2 2 Date Outcome GA Total Labor Labor/2nd/3rd Weight Sex Type Anes PTL Eulalia A1 A5 Name Clin 1975 36w 0d 3.799 kg (8 lb 6 oz) M Vag-S pont Epidur al Livin g Complications:Meconium in am niotic fluid 1980 Term 39w 0d 3.969 kg (8 lb 12 oz) F Vag-S pont Pudend al Livin g Complications:None Last Filed Vital Signs Vital Sign Reading Time Taken Comments Blood Pressure 138/82 02/27/2020 11:50 AM CDT Pulse - - Temperature - - Respiratory Rate - - Oxygen Saturation - - Inhaled Oxygen Concentration - - Weight 75.3 kg (166 lb) 01/19/2025 3:32 PM CDT Height 160 cm (5' 3) 01/19/2025 3:32 PM CDT Body Mass Index 29.41 01/19/2025 3:32 PM CDT Plan of Treatment Health Maintenance Due Date Last Done Comments Colon Cancer Screening-Colonoscopy 1950 Fall Risk Assessment 1950 Hepatitis C Screening 1950 Hepatitis B Screening 12/13/1969 Zoster Vaccine (1 of 2) 12/13/2001 Pneumococcal vaccine 65+ (2 of 2 - PCV20 or PCV21) 09/21/2018 09/21/2017 Depression Screening 02/26/2021 02/27/2020 Well Visit 65+ 02/26/2021 02/27/2020 Covid-19 Vaccine (5 - 2024-2 6 season) 2025 04/08/2024, 05/15/2021, 09/03/2020, Additional history exists Influenza Vaccine (#1) 2025 , 03/13/2021, 02/27/2020, Additional history exists DTaP/Tdap/Td Vaccine (2 - Tdap) 12/30/2025 6 Breast Cancer Screening-Mammogram 01/19/2026 01/19/2025, 09/24/2023, 07/25/2022, Additional history exists Osteoporosis Screening-Bone Density Scan 08/29/2026 08/29/2024, 08/29/2024, 05/14/2020 Procedures Procedure Name Priority Date/Time Associated Diagnosis Comments SCREENING MAMMOGRAM BILATERAL W LUKE Schedule Routine, Read Routine (OP Routine) 01/19/2025 3:31 PM CDT Screening mammogram, encounter for DEXA AXIAL SKELETON BONE DENSITY 1 OR MORE SITES Schedule Routine, Read Routine (OP Routine) 05/14/2020 3:20 PM PATCH FINISHER Screening for osteoporosis from Last 3 Months or Most Recently Relevant to Health Maintenance Results * Screening Mammogram Bilateral W Luke (01/19/2025 3:31 PM CDT) Anatomical Region Laterality Modality Breast Bilateral Mammography Impressions 01/20/2025 9:47 AM CDT Bilateral No evidence of malignancy in either breast. OVERALL BI-RADS FINAL ASSESSMENT: 2 - Benign RECOMMENDATION: Recommend bilateral annual screening mammography. Narrative 01/20/2025 9:47 AM CDT EXAMINATION: Screening Mammogram Bilateral W Luke: 01/19/2025 COMPARISON: Relevant prior studies available at the time of interpretation were reviewed, including the most recent mammogram on: 09/24/2023. TECHNIQUE: Mammography was performed with 2D and 3D digital breast tomosynthesis (DBT) images. CAD was utilized. BREAST PARENCHYMAL COMPOSITION: There are scattered areas of fibroglandular density. FINDINGS: Bilateral There is no suspicious mass, calcification, or architectural distortion in either breast. us Self Screening Mammogram IMG MAMMO PROCEDURES Fi nal Result * Dexa Axial Skeleton Bone Density 1 or 2 Site (05/14/2020 3:20 PM PATCH FINISHER) Anatomical Region Laterality Modality Body N/A Digital Radiogra phy 05/14/2020 3:45 PM PATCH FINISHER Impressions 05/14/2020 3:46 PM PATCH FINISHER BMD near the young adult mean. Based on BMD alone, there is no increased risk of fragility fracture. If followup is to be done, for technical reasons, it should be performed on this same machine. Electronically signed by: Dany Rudolph M.D. Narrative 05/14/2020 3:46 PM PATCH FINISHER EXAM: Bone mineral density [facility]. HISTORY: Postmenopausal. Calcium and vitamin D supplementation. Assess for osteoporosis. DXA BMD was done at [facility] on a Hologic Discovery CI. Precision testing at this site has resulted in a least significant change of: Lumbar spine 0.031 g/sq cm Total Hip 0.026 g/sq cm Femoral neck 0.041 g/sq cm BMD L1-L4 is 1.176 g/sq cm corresponding to a T score of 1.2. BMD left femoral neck is 0.889 g/sq cm corresponding to a T score of 0.4. BMD total left hip is 1.085 g/sq cm corresponding to a T score of 1.2. COMPARISON: None. Procedure Note Dany Rudolph MD - 05/14/2020 EXAM: Bone mineral density [facility]. HISTORY: Postmenopausal. Calcium and vitamin D supplementation. Assess for osteoporosis. DXA BMD was done at [facility] on a Hologic Discovery CI. Precision testing at this site has resulted in a least significant change of: Lumbar spine 0.031 g/sq cm Total Hip 0.026 g/sq cm Femoral neck 0.041 g/sq cm BMD L1-L4 is 1.176 g/sq cm corresponding to a T score of 1.2. BMD left femoral neck is 0.889 g/sq cm corresponding to a T score of 0.4. BMD total left hip is 1.085 g/sq cm corresponding to a T score of 1.2. COMPARISON: None. IMPRESSION: BMD near the young adult mean. Based on BMD alone, there is no increased risk of fragility fracture. If followup is to be done, for technical reasons, it should be performed on this same machine. Electronically signed by: Dany Rudolph M.D. Estefanía Gomes MD [facility] DXA PROCEDURES Final Result from Last 3 Months or Most Recently Relevant to Health Maintenance Insurance [facility] H[facility]/PPO Address: [facility] [address] [place] [address] MEDICARE MEDICARE MEDICARE AETNA SENIOR SUPPLEMENT MEDICARE AETNA Care Teams Pattern Hand Relationship Specialty Start Date End Date Milton Sepulveda DO PCP - General Internal Medicine 09/23/24 Estefanía Gomes MD [address] [address] Consulting Physician Obstetrics and Gynecology 01/19/25
--- OUTSIDE RECORDS SUMMARY | 2025-03-30 14:31 | XMS_ITS | Patient Health Record ---
Author Organization [facility] Address [address] [place] [address] Care Team Providers Care Pilot Safety Inspector Name Role Phone Hermes Monsalve Primary Care Provider Reason For Referral No Information Medications Medication SIG (Take, Route, Frequency, Duration) Notes Start Date End Date Status Amoxil 875 mg tablet 1 tab(s) orally BID 1 Active Metoprolol Tartrate 25 mg tablet 1 tab(s) orally BID; Duration: 30 day(s) Active Multivitamin Multiple Vitamins tablet 1 tab(s) orally once a day; Duration: 30 day(s) Active Calcium-Vitamin D 600 mg-200 units tablet 1 tab(s) orally TID; Duration: 30 day(s) Active CeleXA 20 mg tablet 1/2 tab orally once a day; Duration: 90 Active Fish Oil 1000 MG 1 TAB QD Act abraham Social History Social History Additional Details Category Social Info Options Details Migrated Social History Migrated Social History (Alcohol:):yes (Children:): sons: 1daughters:1 (Marital Status:): (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
--- OUTSIDE RECORDS SUMMARY | 2025-03-30 14:31 | XMS_ITS | Encounter Summary ---
Author Organization [facility] Address [facility] [facility] [place] [address] Care Team Providers Care Script Editor Name Role Phone Darin Estrada Lisa DO Primary Care Provider Tita Armstrong MD Unavailable [phone] PcpStephanie Primary Care Provider Unav ailable Milton Sepulveda DO Primary Care Provider Felipa Ruano Unavailable Aaliyah Draper [employer] PAPER COATING SUPERVISOR-[employer] Unavailable Milton Sepulveda DO Unavailable Tita Vieira MD Unavailable [phone] Milton Sepulveda DO Unavailable Encounter Details Date Type Department Care Team (Late st Contact Info) Description 07/18/2016 [facility] Kan Gruber MD [address] 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 Gender Identity Female 08/11/2020 9:47 PM CDT Sexual Orientation Not on file documented as of this encounter Plan of Treatment Upcoming Encounters Date Type Department Care Team (Late st Contact Info) Description 09/18/2025 10:30 AM CDT Office Visit [facility] - Rheumatology [address] [facility] [address] [place], [place] [id number] [place] [address] [facility] [address] [place] [address] documented as of this encounter Visit Diagnoses Not on filedocumented in this encounter Care Teams Script Editor Relationship Specialty Start Date End Date Darin Estrada DO PCP - General Family Medicine 03/23/12 11/26/22 PcpStephanie PCP - General 11/27/22 02/15/23 Milton Sepulveda DO PCP - General Internal Medicine 02/16/23 Aaliyah Draper APRN-[employer] [address] [place] [address] [phone] PCP - Attributed-MSSP 09/23/23 12/23/23 Milton Sepulveda DO [address] [place] [phone] PCP - Attributed-MSSP 12/24/23 01/23/24 [place] [address] [facility] [address] [place] [phone] PCP - Attributed-MSSP 01/24/24 02/22/24 Milton Sepulveda DO [address] [place] [phone] PCP - Attributed-MSSP 02/23/24 09/09/24 [place] [address] [phone] Rheumatology 06/22/18 Felipa Ruano Care Coordination Specialist Care Management 08/14/23 08/24/23 documented as of this encounter
--- OUTSIDE RECORDS SUMMARY | 2025-03-30 14:31 | XMS_ITS | Clinical Summary ---
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 This disclosure is being madepursuant to the Care Everywhere program and may not contain all information available regarding this patient. Last updated 18.[facility] Allergies Active Allergy Reactions Criticality Noted Date Comments Venlafaxine Unknown Other reaction(s): Other (See comments) Reaction: hypertension, hypertension, Medications * Be aware that medications may not be up to date on this document. Alwaysverify current medications with the patient. Coenzyme Q10 (COQ10) 200 MG Take 200 (two hundred) mg by mouth at bedtime Active methocarbamol (ROBAXIN-750) 750 MG tablet Take 1 tablet by mouth every 6 hours as needed for Muscle Spasms 30 tablet 5 12/24/2017 Active escitalopram (Lexapro) 10 MG tablet Take 1 (one) tablet by mouth once daily 90 tablet 1 08/06/2022 Active losartan (Cozaar) 100 MG tablet Take 1 (one) tablet by mouth once daily 90 tablet 08/06/2022 Active rosuvastatin (Crestor) 5 MG tablet Take 1 (one) tablet by mouth once daily 90 tablet 1 08/06/2022 Active nebivolol (Bystolic) 20 MG tablet Take 1 (one) tablet by mouth once daily 90 tablet 1 08/06/2022 Active doxazosin (Cardura) 8 MG tablet Take 1 (one) tablet by mouth at bedtime 90 tablet 2 08/06/2022 Active sulfaSALAzine (Azulfidine) 500 MG tabletIndication s:Seropositive rheumatoid arthritis of multiple sites (HCC),High risk medications (not anticoagulants) long-term use,Immunosuppre ssed status (HCC) TAKE 1 (ONE) TABLET BY MOUTH 2 TIMES DAILY 60 tablet 5 09/01/2024 Active Active Problems Problem Noted Date Diagnosed Date Paroxysmal atrial fibrillation 08/08/2021 Overview (08/08/2021): OV:07/23/21 Darin Estrada DO Unspecified mood (affective) disorder 07/23/2021 CKD stage G3a/A1, GFR 45-59 and albumin creatinine ratio <30 mg/g 09/06/2020 Seropositive rheumatoid arthritis of multiple si cl 12/03/2018 Polyarthralgia 12/03/2018 Vitamin D deficiency 12/03/2018 High risk medications (not anticoagulants) long- term use 12/03/2018 Immunosuppressed status 12/03/2018 Overview (03/12/2021): Office Visit 12/05/2020 [facility] Tita Vieira MD Rheumatology Low back pain 11/24/2013 Atrial fibrillation 02/15/2013 Overview (03/12/2021): Office Visit 09/06/2020 [facility] - Family Medicine Darin Estrada DO Family Medicine Depression 03/23/2012 Encounters Date Type Department Care Team Description 03/20/2025 10:30 AM CDT Office Visit [facility] - Rheumatology [address] [address] Tita Vieira MD Seropositive rheumatoid arthritis of multiple sites (HCC) (Primary Dx); High risk medications (not anticoagulants) long-term use; Immunosuppressed status (HCC); Polyarthralgia; Vitamin D deficiency from Last 3 Months Immunizations Immunization Administration Dates Next Due Covid Moderna primary monovalent 12+ yr 0.5mL Covid Pfizer primary monoval ent 12+ yr 0.3mL Purple cap 09/03/2020,08/13/2020 DTaP VACCINE IM (6wk-6yrs) 12/31/2015 INFLUENZA VACCINE 02/27/2020,03/08/2019 INFLUENZA VACCINE, ADJUVANTE D, QUADR. (FLUAD QUADRIVALENT; 65Y+) (AIIV4) 03/03/2022,03/13/2021 INFLUENZA VACCINE, HIGH-DOSE , QUADR. (FLUZONE HIGH-DOSE QUADRIVALENT; 65Y+), 0.7 ML (HD-IIV4) 02/24/2018 Influenza Pf Intradermal (ADULT) 02/15/2013 Pneumococcal Pcv13 Conj 09/21/2017 Family History Medical History Relation Name Comments Cancer Brother 3 brain Heart Failure Father Cancer Maternal Grandfather prostat e Cancer Mother Lung Relation Name Status Comments Brother 1 Alive Brother 2 (Age 52) Cancer Brother 3 Father (Age 76) [place] Maternal Grandfather Mother (Age 74) Cancer Social History Tobacco Use Types Packs/Day Years Used Date Smoking Tobacco: Never Smokeless Tobacco: Never Alcohol Use Standard Drinks/Week Comments Yes 0 (1 standard drink = 0.6 oz pur e alcohol) very rare PHQ-2 Answer Date Recorded PHQ2 TOTAL SCORE 0 08/06/2022 Comments No Sex and Gender Information Value Date Recorded Sex Assigned at Female 08/11/2020 9:47 PM CDT Legal Sex Female 5:11 AM BAG [employer]ER Gender Identity Female 08/11/2020 9:47 PM CDT Sexual Orientation Not on file 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 Not on file Not on file Last Filed Vital Signs Vital Sign Reading Time Taken Comments Blood Pressure 160/78 03/20/2025 10:15 AM CDT Pulse 53 03/20/2025 10:15 AM CDT Temperature 36.4 C (97.5 F) 08/14/2022 10:08 AM CDT Respiratory Rate 16 03/20/2025 10:15 AM CDT Oxygen Saturation 98% 03/20/2025 10:15 AM CDT Inhaled Oxygen Concentration - - Weight 75.3 kg (166 lb) 03/20/2025 10:15 AM CDT Height 160 cm (5' 3) 03/20/2025 10:15 AM CDT Body Mass Index 29.41 03/20/2025 10:15 AM CDT Plan of Treatment Upcoming Encounters Date Type Department Care Team (Late st Contact Info) Description 09/18/2025 10:30 AM CDT Office Visit [facility] - Rheumatology [address] [place] [address] [place] [address] [facility] [facility] [place] [phone] Health Maintenance Due Date Last Done Comments COLOGUARD (AGES 45-75) - COLON CA SCREENING 1950 CT COLONOGRAPHY - COLON CA SCREENING 1950 FIT - COLON CA SCREENING 1950 FLEX SIG - COLON CA SCREENING 1950 ZOSTER VACCINE (1 of 2) 12/13/1970 Respiratory Syncytial Virus (RSV) Vaccine Pt: or over 60 yrs (1 - Risk 60-74 years 1-dose series) 2011 PNEUMOCOCCAL VACCINE 50+ (2 of 2 - PPSV23, PCV20, or PCV21) 11/16/2017 09/21/2017 COLON MONITORING 04/29/2020 04/29/2010 COLONOSCOPY - COLON CA SCREENING 04/29/2020 04/29/2010 Colorectal Cancer Screening 04/29/2020 MEDICARE AWV 12 MONTHS 03/13/2022 03/13/2021 DEPRESSION SCREENING 05/25/2024 02/16/2023, 08/14/2022, 08/06/2022, Additional history exists COVID-19 VACCINE ( - season) 2025 04/08/2024, 03/12/2022, 05/15/2021, Additional history exists INFLUENZA VACCINE (#1) 2025 , 03/03/2022, 03/13/2021, Additional history exists DTAP/TDAP/TD VACCINES (2 - Tdap) 12/30/2025 12/31/2015 MAMMOGRAM 01/19/2027 01/19/2025, 12/24, 09/24/2023, Additional history exists SCREENING FOR DIABETES 02/24/2028 , 08/11/2024, 02/11/2024, Additional history exists HEPATITIS C SCREENING Addressed 11/24/2013 (Not Covered by Insurance) Overridden with the intention of not completing the topic BONE DENSITY TESTING Completed 08/29/2024, 05/14/20 HEPATITIS B VACCINE Aged Out No longe r eligible based on patient's age to complete this topic HIB VACCINE Aged Out No longer eligi ble based on patient's age to complete this topic HPV VACCINE Aged Out No longer eligi ble based on patient's age to complete this topic MENINGOCOCCAL (Group B) VACCINE SHARED DECISION-MAKING Aged Out No longer eligible based on patient's age to complete this topic MENINGOCOCCAL GROUPS A/C/Y/W VACCINE Aged Out No longer eligible based on patient's age to complete this topic Goals Goal Patient Goal Type Associated Problems Recent Progress Patient-Stated? Author Blood Pressure < 140/90 Blood Pressure 160/78(2024 10:15 AM CDT) No Silverio, Diedrene R Procedures Procedure Name Priority Date/Time Associated Diagnosis Comments VITAMIN D 25-HYDROXY Routine 02/23/2025 9:27 AM CDT Seropositive rheumatoid arthritis of multiple sites (HCC) High risk medications (not anticoagulants) long-term use Immunosuppressed status (HCC) Polyarthralgia Vitamin D deficiency Postmenopausal osteoporosis ERYTHROCYTE SEDIMENTATION RATE Routine 02/23/2025 9:27 AM CDT Seropositive rheumatoid arthritis of multiple sites (HCC) High risk medications (not anticoagulants) long-term use Immunosuppressed status (HCC) Polyarthralgia Vitamin D deficiency Postmenopausal osteoporosis C-REACTIVE PROTEIN Routine 02/23/2025 9: 27 AM CDT Seropositive rheumatoid arthritis of multiple sites (HCC) High risk medications (not anticoagulants) long-term use Immunosuppressed status (HCC) Polyarthralgia Vitamin D deficiency Postmenopausal osteoporosis COMPREHENSIVE METABOLIC PANEL Routine 02/23/2025 9:27 AM CDT Seropositive rheumatoid arthritis of multiple sites (HCC) High risk medications (not anticoagulants) long-term use Immunosuppressed status (HCC) Polyarthralgia Vitamin D deficiency Postmenopausal osteoporosis CBC W AUTO DIFFERENTIAL Routine 02/23/2025 9:27 AM CDT Seropositive rheumatoid arthritis of multiple sites (HCC) High risk medications (not anticoagulants) long-term use Immunosuppressed status (HCC) Polyarthralgia Vitamin D deficiency Postmenopausal osteoporosis DEXA BONE DENSITY AXIAL SKELETON Routine 08/29/2024 12:54 PM CDT Seropositive rheumatoid arthritis of multiple sites (HCC) High risk medications (not anticoagulants) long-term use Immunosuppressed status (HCC) Polyarthralgia Vitamin D deficiency Postmenopausal osteoporosis MAMMOGRAM 07/25/2022 ENDOSCOPY, COLON, SCREENING Routine 04/29/2010 from Last 3 Months or Most Recently Relevant to Health Maintenance Results * C-REACTIVE PROTEIN (02/23/2025 9:27 AM CDT) C-Reactive Protein 1 0 - 10 mg/L [facility] INSURANCE BILL Blood BLOOD SPECIMEN / Unknown 02/23/2025 9:27 AM CDT 02/23/2025 Narrative [facility] INSURANCE BILL - 02/24/2025 1:10 PM CDT Performed at: [address] [place] [id number] Human Resources Talent Manager: Elmer Starr PhD, Phone: [phone] us Tita Vieira MD LAB - CHEMISTRY ORDERABLES Concepción l Result Performing Organization Address City/State/[facility] Co de Phone Number [facility] INSURANCE BILL [address] [place] [address] * VITAMIN D 25-HYDROXY (02/23/2025 9:27 AM CDT) Vitamin D, 25 Hydroxy 33.9 30.0 - 100.0 ng/mL [facility] INSURANCE BILL Comment: Vitamin D deficiency has been defined by the [place] of Medicine and an Endocrine Society practice guideline as a level of serum 25-OH vitamin D less than 20 ng/mL (1,2). The Endocrine Society went on to further define vitamin D insufficiency as a level between 21 and 29 ng/mL (2). 1. IOM ([place] of Medicine). 2010. Dietary reference intakes for calcium and D. [place]: The National Academies Press. 2. Umesh MF, Storm CURIEL, Luis QUINTERO, et al. Evaluation, treatment, and prevention of vitamin D deficiency: an Endocrine Society clinical practice guideline. JCEM. 2010; 96(7):1911-30. Blood BLOOD SPECIMEN / Unknown 02/23/2025 9:27 AM CDT 02/23/2025 Narrative [facility] INSURANCE BILL - 02/24/2025 9:11 AM CDT Performed at: [address] [place] [id number] Human Resources Talent Manager: Elmer Starr PhD, Phone: [phone] Tita Vieira MD LAB - CHEMISTRY ORDERABLES Concepción l Result Performing Organization Address [facility] de Phone Number [facility] INSURANCE BILL [address] [place] [address] * ERYTHROCYTE SEDIMENTATION RATE (02/23/2025 9:27 AM CDT) Erythrocyte Sedimentation Rate Westergren 2 0 - 40 mm/hr [facility] INSURANCE BILL Blood BLOOD SPECIMEN / Unknown 02/23/2025 9:27 AM CDT 02/23/2025 Narrative [facility] INSURANCE BILL - 02/24/2025 7:10 AM CDT Performed at: [address] [place] [id number] Human Resources Talent Manager: Elmer Starr PhD, Phone: [phone] Tita Vieira MD LAB - HEMATOLOGY ORDERABLES Fin al Result Performing Organization Address [facility] de Phone Number [facility] INSURANCE BILL [address] [place] [address] * CBC WITH DIFFERENTIAL (02/23/2025 9:27 AM CDT) WBC 5.6 3.4 - 10.8 x10E3/uL [facility] INSURANCE BILL RBC 4.27 3.77 - 5.28 x10E6/uL [facility] INSURANCE BILL Hemoglobin 13.2 11.1 - 15.9 g/dL [facility] INSURANCE BILL Hematocrit 40.1 34.0 - 46.6 % [facility] INSURANCE BILL MCV 94 79 - 97 fL [facility] INSURANCE BILL MCH 30.9 26.6 - 33.0 pg [facility] INSURANCE BILL MCHC 32.9 31.5 - 35.7 g/dL [facility] INSURANCE BILL RDW 13.0 11.7 - 15.4 % [facility] INSURANCE BILL Platelet Count 188 150 - 450 x10E3/uL [facility] INSURANCE BILL Granulocytes % 58 Not Estab. % [facility] INSURANCE BILL Lymphocytes % 32 Not Estab. % [facility] INSURANCE BILL Monocytes % 7 Not Estab. % [facility] INSURANCE BILL Eosinophils % 2 Not Estab. % [facility] INSURANCE BILL Basophils % 1 Not Estab. % [facility] INSURANCE BILL Granulocytes Absolute 3.2 1.4 - 7.0 x10E3/uL [facility] INSURANCE BILL Lymphocytes Absolute 1.8 0.7 - 3.1 x10E3/uL [facility] INSURANCE BILL Monocytes Absolute 0.4 0.1 - 0.9 x10E3/uL [facility] INSURANCE BILL Eosinophils Absolute 0.1 0.0 - 0.4 x10E3/uL [facility] INSURANCE BILL Basophils Absolute 0.1 0.0 - 0.2 x10E3/uL [facility] INSURANCE BILL Immature Granulocytes 0 Not Estab. % [facility] INSURANCE BILL Immature Granulocytes Absolute 0.0 0.0 - 0.1 x10E3/uL [facility] INSURANCE BILL Blood BLOOD SPECIMEN / Unknown 02/23/2025 9:27 AM CDT 02/23/2025 Narrative [facility] INSURANCE BILL - 02/24/2025 7:10 AM CDT Performed at: 01 - [facility] [id number] [place], [place] [id number] Human Resources Talent Manager: Elmer Starr PhD, Phone: [phone] us Tita Vieira MD LAB - HEMATOLOGY ORDERABLES Fin al Result [facility] INSURANCE BILL [address] [place] [address] * (ABNORMAL) COMPREHENSIVE METABOLIC PANEL (02/23/2025 9:27 AM CDT) Glucose 101(H) 70 - 99 mg/dL [facility] INSURANCE BILL BUN 20 8 - 27 mg/dL [facility] INSURANCE BILL Creatinine 1.02(H) 0.57 - 1.00 mg/dL [facility] INSURANCE BILL eGFR by CKD-EPI 58(L) >59 mL/min/1.7 3 [facility] INSURANCE BILL BUN/Creatinine Ratio 20 12 - 28 [facility] INSURANCE BILL Sodium 139 134 - 144 mmol/L [facility] INSURANCE BILL Potassium 4.6 3.5 - 5.2 mmol/L [facility] INSURANCE BILL Chloride 103 96 - 106 mmol/L [facility] INSURANCE BILL CO2 23 20 - 29 mmol/L [facility] INSURANCE BILL Calcium 9.3 8.7 - 10.3 mg/dL [facility] INSURANCE BILL Protein Total 6.3 6.0 - 8.5 g/dL [facility] INSURANCE BILL Albumin 4.3 3.8 - 4.8 g/dL [facility] INSURANCE BILL Globulin Total 2.0 1.5 - 4.5 g/dL [facility] INSURANCE BILL Bilirubin Total 0.6 0.0 - 1.2 mg/dL [facility] INSURANCE BILL Alkaline Phosphatase 68 49 - 135 IU/L [facility] INSURANCE BILL AST 17 0 - 40 IU/L [facility] INSURANCE BILL ALT 17 0 - 32 IU/L [facility] INSURANCE BILL Blood BLOOD SPECIMEN / Unknown 02/23/2025 9:27 AM CDT 02/23/2025 Narrative [facility] INSURANCE BILL - 02/24/2025 9:11 AM CDT Performed at: 01 - [facility] [address] [place], [place] [id number] Human Resources Talent Manager: Elmer Starr PhD, Phone: [phone] us Tita Vieira MD LAB - CHEMISTRY ORDERABLES Concepción l Result [facility] INSURANCE BILL [address] [place] [address] * Dexa Bone Density Axial Skeleton (08/29/2024 12:54 PM CDT) Anatomical Region Laterality Modality Mammography 08/29/2024 12:5 9 PM CDT Narrative 08/29/2024 1:55 PM CDT BONE MINERAL DENSITY STUDY INDICATION: Ovarian failure. FINDINGS: The average bone mineral density from L1 to L4 is 1.356 g/cm2. T-score is 1.3 which is the standard deviations (SD) of the mean for the young adult. The Z-score is 2.6 which is the standard deviations for the mean for age matched control. The average bone mineral density of the total neck mean of the hip is 1.023 g/cm2. T-score is -0.1. Z-score is 1.5. The 10 year probability of fracture major osteoporotic: 9.5%. Hip: 0.8%. ASSESSMENT: The above findings represent no significant increased risk of fracture through the spine and femur. WORLD HEALTH ORGANIZATION DEFINITIONS OSTEOPENIA = -1 TO -2.5 SD BELOW T-SCORE OSTEOPOROSIS = LESS THAN -2.5 SD BELOW T-SCORE 1. No significant- < 1 SD below T score 2. Mild - 1 -2.0 SD below T-score 3. Moderate - 2 -2.5 SD below T-score 4. Significant - > 2.5 SD below T-score The 2007 the International Society for Clinical Densitometry (ICSD) Official Positions states that osteoporosis in perimenopausal and postmenopausal women and in men age 50 and older may be diagnosed if the T score of the lumbar spine, total hip, or femoral neck is -2.5 or less. In perimenopausal women and in men younger than age 50, T-scores may be used but Z-scores are preferred. In this patient group, a Z score of -2 or lower is defined as below the expected range for age. FRAX is a computer based algorithm which uses easily obtained clinical risk factors combined with femoral neck BMD or T score to estimate an individual 10 year fracture probability. FRAX with BMD predicts fracture risk better than clinical risk factors or BMD alone. It is not appropriate to use as a FRAX to monitor treatment response. 2008 National Osteoporosis Foundation Recommendations: Treatment of osteoporosis should be considered when: -Patients have a history of hip or vertebral fractures -T score <2.5 at the femoral neck or spine -Z score between -1.0 and -2.5 at the femoral neck or spine and the 10 year fracture risk is calculated to exceed 20% for any major fracture or exceeds 3% for a hip fracture. Edited by Christine Porter on 08/29/2024 1:05 PM > Interpreting Provider: Kadeem Parisi MD on 08/29/2024 1:55 PM Procedure Note Kadeem Parisi MD - 08/29/2024 BONE MINERAL DENSITY STUDY INDICATION: Ovarian failure. FINDINGS: The average bone mineral density from L1 to L4 is 1.356 g/cm2. T-scoreis 1.3 which is the standard deviations (SD) of the mean for the youngadult. The Z-score is 2.6 which is the standard deviations for the mean forage matched control. The average bone mineral density of the total neck mean of the hip is1.023 g/cm2. T-score is -0.1. Z-score is 1.5. The 10 year probability of fracture major osteoporotic: 9.5%. Hip: 0.8%. ASSESSMENT: The above findings represent no significant increased riskof fracture through the spine and femur. WORLD HEALTH ORGANIZATION DEFINITIONS OSTEOPENIA = -1 TO -2.5 SD BELOW T-SCORE OSTEOPOROSIS = LESS THAN -2.5 SD BELOW T-SCORE 1. No significant- < 1 SD below T score 2. Mild - 1 -2.0 SD below T-score 3. Moderate - 2 -2.5 SD below T-score 4. Significant - > 2.5 SD below T-score The 2007 the International Society for Clinical Densitometry (ICSD) Official Positions states that osteoporosis in perimenopausal and postmenopausal women and in men age 50 and older may be diagnosed if theT score of the lumbar spine, total hip, or femoral neck is -2.5 or less. In perimenopausal women and in men younger than age 50, T-scores may be used but Z-scores are preferred. In this patient group, a Z score of -2or lower is defined as below the expected range for age. FRAX is a computer based algorithm which uses easily obtained clinicalrisk factors combined with femoral neck BMD or T score to estimate anindividual 10 year fracture probability. FRAX with BMD predicts fracture riskbetter than clinical risk factors or BMD alone. It is not appropriate to use asa FRAX to monitor treatment response. 2008 National Osteoporosis Foundation Recommendations: Treatment of osteoporosis should be considered when: -Patients have a history of hip or vertebral fractures -T score <2.5 at the femoral neck or spine -Z score between -1.0 and -2.5 at the femoral neck or spine and the 10year fracture risk is calculated to exceed 20% for any major fracture orexceeds 3% for a hip fracture. Edited by Christine Porter on 08/29/2024 1:05 PM > Interpreting Provider: Kadeem Parisi MD on 08/29/2024 1:55 PM Tita Vieira MD DEXA ORDERABLES Final Result * ENDOSCOPY, COLON, SCREENING (04/29/2010) Darin Estrada DO GI PROCEDURE ORDERABLES Final Result from Last 3 Months or Most Recently Relevant to Health Maintenance Insurance [facility] Care Teams Sheet Metal Operator Relationship Specialty [place] [address] [phone] PCP - General Internal Medicine 02/16/23 [place] [address] [phone] Rheumatology 06/22/18
== END 2025-03-29 14:51 | disposition home or self-care (01) ==
LOC: ANHCARD 14:52
PROVIDERS: PCP Internal Medicine; Visit Provider Internal Medicine
DX: I35.1 Nonrheumatic aortic (valve) insufficiency (principal); R93.1 Abnormal findings on diagnostic imaging of heart and coronary circulation
CPT/HCPCS: 93306